=== PATIENT | female | born 1930 | race Caucasian/White ===

== ENCOUNTER 2017-04-12 16:04 | Emergency (ER) | payer MEDICARE, OTHER ==
[~2017-04-12] VITALS: Ht 160 cm; Wt 49.9 kg
[~2017-04-12 16:04] MED LIST: ESOM40CA PO; METOPROLOL; VITAMIN B
[2017-04-12 17:37] VITALS: BP 148/76
== END 2017-04-12 18:16 | disposition home or self-care (01) ==
LOC: ED 17:00
DX: R07.89 Other chest pain (principal); K21.9 Gastro-esophageal reflux disease without esophagitis
CPT/HCPCS: 71020; 93005; 99284